=== PATIENT | male | born 1980 | race Caucasian/White ===

== ENCOUNTER 2021-06-28 14:00 | Inpatient (IN) | payer MEDICAID ==
[~2021-06-28] VITALS: Ht 172.7 cm; Wt 99.8 kg
[2021-06-28 14:00] VITALS: BP_SYST 164
--- NOTE | 2021-06-28 14:00 | NUR ---
Patient triaged and placed in waiting room. VSS and patient appears in no acute distress at this time. Accompanied by FAMILY, awaiting available bed, and MD notified of need for MSE.
--- NOTE | 2021-06-28 14:25 | NUR ---
ADAM BACK TO BED #[address] GARCIA AT BEDSIDE FOR EVALUATION
--- NOTE | 2021-06-28 14:56 | NUR ---
EKG done at bedside, results given to Dr. Curran for review.
[2021-06-28] MEDS ORDERED: ASPIRIN 81 MG TAB.CHEW PO ONE (15:00)
[2021-06-28] MEDS ORDERED: OLANZapine 10 MG TABLET PO ONE ×2 (15:00→23:30)
--- NOTE | 2021-06-28 15:01 | NUR ---
X-ray being done at bedside.
[2021-06-28 15:12] LABS: BASOPHILS # (AUTO) 0.1 K/uL (0.0-0.2); BASOPHILS % (AUTO) 0.8 % (0.0-2.0); HEMATOCRIT 38.8 % (36-54); HEMOGLOBIN 13.3 g/dL (14.0-18.0); LYMPHOCYTES # (AUTO) 1.1 K/uL (1.0-5.5); LYMPHOCYTES % (AUTO) 8.5 % (20.5-51.5); MEAN CORPUSCULAR HEMOGLOBIN 31 pg (27-31); MEAN CORPUSCULAR HGB CONC 34 % (32-36); MEAN CORPUSCULAR VOLUME 92 fL (79.0-98.0); MONOCYTES # (AUTO) 0.5 K/uL (0.0-1.0); NEUTROPHILS # (AUTO) 10.8 K/uL (1.8-7.7); NEUTROPHILS % (AUTO) 86.7 % (40.0-70.0); PLATELET COUNT (AUTO) 207 K/uL (130-430); RED BLOOD CELL COUNT(AUTO) 4.24 MIL/uL (4.2-6.2); RED CELL DISTRIBUTION WIDTH 14.3 % (9.0-15.0); WHITE BLOOD COUNT (AUTO) 12.5 K/uL (4.8-10.8)
--- NOTE | 2021-06-28 16:00 | NUR ---
URINE SPECIMEN COLLECTED sent to lab
[2021-06-28 16:01] LABS: ANION GAP 9 (5-15); CALCIUM 8.4 mg/dL (8.4-11.0); CHLORIDE 100 mmol/L (98-107); GLUCOSE 106 mg/dL (70-99); POTASSIUM 4.3 mmol/L (3.5-5.1); SODIUM SERUM 133 mmol/L (136-145)
[2021-06-28 16:02] LABS: ALANINE AMINOTRANSFERASE 19 U/L (12-78); ALBUMIN 4.2 g/dL (3.4-4.8); ASPARTATE AMINOTRANSFERASE 19 U/L (10-37); CREATININE 1.76 mg/dL (0.55-1.30); GFR AFRICAN AMERICAN 55 mL/min (>90); TOTAL BILIRUBIN 0.3 mg/dL (0.0-1.0); UREA NITROGEN, BLOOD 20 mg/dL (8-21)
[2021-06-28 16:03] LABS: ACETAMINOPHEN < 1 ug/mL (1-30); ALCOHOL, BLOOD < 3 mg/dL (<10)
[2021-06-28] MEDS ORDERED: NACL 0.9% 1,000 ML IV ONE (16:30)
[2021-06-28 16:49] LABS: BILIRUBIN,URINE NEGATIVE (NEGATIVE); BLOOD, URINE 1+ (NEGATIVE); CLARITY/URINE CLEAR (CLEAR); COLOR,URINE YELLOW (YELLOW); GLUCOSE,URINE NEGATIVE (NEGATIVE); KETONES,URINE NEGATIVE (NEGATIVE); LEUKOCYTE ESTERASE ,URINE NEGATIVE (NEGATIVE); NITRITE, URINE NEGATIVE (NEGATIVE); PH,URINE 5.5 (5.0-8.0); PROTEIN URINE 2+ (NEGATIVE); UROBILINOGEN,URINE 0.2 (0.2-1.0)
[2021-06-28 17:11] LABS: CANNABINOID, URINE POSITIVE (NEG <=50); URINE AMPHETAMINE POSITIVE (NEG <=500)
[2021-06-28 17:12] LABS: BARBITURATE, URINE NEGATIVE (NEG <=200); BENZODIAZEPINE, URINE NEGATIVE (NEG <=150); COCAINE, URINE NEGATIVE (NEG <=150); METHAMPHETAMINES SCREEN,URINE POSITIVE (NEG <=500); OPIATE, URINE NEGATIVE (NEG <=100); PHENCYCLIDINE SCREEN,URINE NEGATIVE (NEG <=25); UR TRICYCLIC ANTIDEPRESSANTS NEGATIVE (NEG <=300); URINE METHADONE NEGATIVE (NEG <=200); URINE OXYCODONE SCREEN NEGATIVE (NEG <=100); URINE PROPOXYPHENE SCREEN NEGATIVE (NEG <=300)
[2021-06-28] MEDS ORDERED: LORazepam 2 MG/ML VIAL IVP ONE (18:15)
--- NOTE | 2021-06-28 18:15 | NUR ---
Admit bed requested Patient will be admitted to care of . Admitted to TELE unit. Diagnosis CHEST PAIN Inpatient (Yes or No) Y Observation (Yes or No) N Orientation concerns or request close to nursing station (Yes or No) Y Covid Status On vent or bipap Isolation requirements N Needs a sitter N From Home (Yes or if No enter name of facility) NO. [place] Requires Dialysis (Yes or No) N Med Rec Completed (Yes of No) Y
--- NOTE | 2021-06-28 18:15 | NUR ---
PT STATES HE TAKES NO MEDICATIONS. NONE FOR RECONCILIATION.
[2021-06-28 18:41] LABS: BACTERIA,URINE None Seen /HPF (None Seen); WBC,URINE NONE SEEN /HPF (0-3)
[2021-06-28 18:42] LABS: MUCUS,URINE 2+ /LPF (None Seen)
--- NOTE | 2021-06-28 19:54 | NUR ---
Received report from [place] Pt resting comfortably in bed AOX4 VSS Able to make make needs known No acute distress at this time Will continue to monitor
--- NOTE | 2021-06-28 21:55 | NUR ---
THIS IS AN ADMISSION NOTE FOR A 41 YEAR OLD MALE PATIENT UNDER THE CARE OF DOCTOR NOWAK FOR CHEST PAIN. TEAM ATTEMPTS TO PROVIDE MEDICAL CLEARANCE FOR A PATIENT WHO IS TO BE ADMITTED AT [facility]. BARRIERS TO ADMISSION INCLUDE HYPERTENSION AND TACHYCARDIA. NAKIA MEEKS RN
[2021-06-28 22:08] VITALS: BP_SYST 180
--- NOTE | 2021-06-28 22:09 | NUR ---
EDUCATION REGARDING REMOVAL OF INSTRUMENT CHECKER TO PATIENT AND CAREGIVER AT BEDSIDE PATIENT REMOVES HEART MONITOR SPONTANEOUSLY REFUSING TO WEAR DEVICE. PATIENT IS ADMITTED FOR THE TACHYCARDIA TREATMENT/MONITORING. NAKIA MEEKS RN
[2021-06-28] MEDS ORDERED: cloNIDine HCL 0.2 MG TABLET PO PRN (23:30)
[2021-06-28] MEDS ORDERED: NITROGLYCERIN 0.4 MG TAB.SUBL SL PRN (23:30)
[2021-06-28] MEDS ORDERED: CARVEDILOL 25 MG TABLET (COREG) PO ONE (23:30)
--- NOTE | 2021-06-29 00:24 | NUR ---
PATIENT AND CAREGIVER EDUCATION ON LEAVING HEART MONITOR IN PLACE IT WAS REMOVED AGAIN. WILL REPLACE LEADS. CAREGIVER SAYS PATIENT WAS USING RESTROOM. WILL PROVIDE PATIENT GOWN AND REATTACH CHLORINATOR OPERATOR. NAKIA MEEKS RN
[2021-06-29 00:51] VITALS: BP_SYST 157
--- NOTE | 2021-06-29 03:06 | NUR ---
PATIENT TOOK OF GOWN WITH BANKING ATTORNEY AND IS SITTING AT SIDE OF BED IN DANGLING POSITION. WILL PROVIDE RE-EDUCATION REGARDING THE REASON FOR HOSPITALIZATION AND MEDICAL EQUIPMENT ORDER FOR HEART MONITORING. NAKIA MEEKS RN
[2021-06-29 04:18] VITALS: BP_SYST 152
--- NOTE | 2021-06-29 06:10 | NUR ---
CALL TO PROVIDER, DOCTOR NOWAK, REGARDING COREG ORDER CLARIFICATION 6.25MG ON MEDICATION HISTORY VERSUS 25 MG ORDER AT THIS TIME. ORDER IS WRITTEN FOR 25 MG COREG PER MD. ALSO REQUEST TO ADD DIASTOLIC ORDER FOR PATIENT CLONIDINE PRN COVERAGE INSTEAD OF SYSTOLIC OVER 160 MM HG. PATIENT ORDER FOR CLONIDINE IS ORDERED PER MD FOR SYSTOLIC GREATER THAN 160 MMHG. NAKIA MEEKS RN
[2021-06-29 06:23] LABS: BASOPHILS # (AUTO) 0.1 K/uL (0.0-0.2); BASOPHILS % (AUTO) 0.7 % (0.0-2.0); EOSINOPHILS % (AUTO) 0.3 % (0.0-4.0); HEMATOCRIT 37.9 % (36-54); HEMOGLOBIN 12.8 g/dL (14.0-18.0); LYMPHOCYTES # (AUTO) 1.6 K/uL (1.0-5.5); LYMPHOCYTES % (AUTO) 15.1 % (20.5-51.5); MEAN CORPUSCULAR HEMOGLOBIN 31 pg (27-31); MEAN CORPUSCULAR HGB CONC 34 % (32-36); MEAN CORPUSCULAR VOLUME 92 fL (79.0-98.0); MONOCYTES # (AUTO) 0.9 K/uL (0.0-1.0); MONOCYTES % (AUTO) 8.7 % (1.7-9.3); NEUTROPHILS # (AUTO) 7.8 K/uL (1.8-7.7); NEUTROPHILS % (AUTO) 75.2 % (40.0-70.0); PLATELET COUNT (AUTO) 198 K/uL (130-430); RED BLOOD CELL COUNT(AUTO) 4.11 MIL/uL (4.2-6.2); RED CELL DISTRIBUTION WIDTH 14.3 % (9.0-15.0); WHITE BLOOD COUNT (AUTO) 10.4 K/uL (4.8-10.8)
[2021-06-29 06:47] LABS: CALCIUM 8.2 mg/dL (8.4-11.0); CREATININE 1.52 mg/dL (0.55-1.30); POTASSIUM 3.9 mmol/L (3.5-5.1)
--- NOTE | 2021-06-29 07:13 | NUR ---
HANDOFF WITH MANUEL CALVILLO. NAKIA MEEKS RN
--- NOTE | 2021-06-29 07:30 | NUR ---
OPENING NOTES: PATIENT SITTING ON BED. BREATHING EVEN AND NON LABORED TO ROOM AIR. DENIES ANY DISCOMFORT AT THIS TIME. ROLL EXAMINER AT BEDSIDE. FALL AND SAFETY MEASURES REINFORCED. CALL LIGHT WITHIN REACH.
[2021-06-29 07:49] VITALS: BP_SYST 156
[2021-06-29] MEDS ORDERED: ASPIRIN 81 MG TAB.CHEW PO SCH (09:00)
[2021-06-29] MEDS ORDERED: ENOXAPARIN SODIUM 30 MG/0.3 ML SYRINGE SUBCUT SCH (09:00)
[2021-06-29] MEDS ORDERED: OLANZapine 10 MG TABLET PO SCH (09:00)
[2021-06-29] MEDS ORDERED: CARVEDILOL 25 MG TABLET (COREG) PO SCH (09:00)
[2021-06-29] MEDS ORDERED: cloNIDine HCL 0.2 MG TABLET PO ONE (10:45)
--- NOTE | 2021-06-29 10:50 | NUR ---
RN NOTES/SPOKE TO DR. NOWAK: DR. NOWAK CALLED. PER DR. NOWAK, MAY GIVE CLONIDINE 0.2 MG TABLET PO ONCE.
[2021-06-29 11:22] VITALS: BP_SYST 158
--- NOTE | 2021-06-29 12:15 | NUR ---
Client [employer] Specialist LUIGI Sharp responded to a request for social service support and to clarify patient's residence and plan for [facility]. LUIGI Sharp met with patient's caregiver Teresa Kaynez outside of room. Teresa is a pipeline gang supervisor for [employer]. She shared the patient has a 24 hour caregiver via [employer]. He is currently residing in an [facility] while the program addresses his needs for housing and other pertinent services. 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 He is currently not under conservatorship, and is able to make decisions for himself LUIGI Sharp met with patient at bedside. Patient was awake, alert and oriented x4. OFFICE SUPPORT ASSISTANT completed introductions, reason for social service consult, and provided business card. Patient was open to contact. *Patient provided permission to speak with caregiver in the room* Current concern- Patient's caregiver Teresa shares yesterday, 06/28/2021, the patient was expressing being depressed, hopeless, frustrated, and possible SI. Teresa shared they had transported him to [facility], but due to high blood pressure the patient was sent for medical clearance. Mental Health- Patient shares a previous diagnosis of Schizophrenia and Depression. While in skilled nursing he met with a psychiatrist who has prescribed him meds. Patient nor caregiver were able to provide name, but shared he receives a 1x month injection for the Schizophrenia and one other pill. Patient denies any SI at this time Substance use- OFFICE SUPPORT ASSISTANT attempted to discuss patient's +amphetamine, +methamphetamine, and +cannabinoids toxicology, but patient denied use. He stated "they got it wrong, that's not my pee". Caregiver shares patient has a history of substance abuse. Social- Patient was released from [facility] about 2 months ago, after serving 6 months. He is supported by his mother and siblings who reside in [place]. He also received services via [facility], and [employer]. OFFICE SUPPORT ASSISTANT inquired into his plan to address his mental health. Patient shared he did not want to return to [facility]. Caregiver encouraged patient to return voluntarily due to his expressions the previous day, and patient agreed. Plan- OFFICE SUPPORT ASSISTANT will contact [facility] to inquire into bed availability and process for voluntary admission. Due to patient's mental health history and caregiver's expressing concern, OFFICE SUPPORT ASSISTANT met with supervisor warping department and Patient's RN and recommended psych consult for additional assessment. OFFICE SUPPORT ASSISTANT will continue to be available as needed. Addendum: 06/29/21 at 1423 by Lila MEYERS LUIGI Sharp contacted [facility] to inquire into bed availability. According to facility, if the patient is not currently expressing suicidal ideation they will not accept him voluntarily. She also shared they would refer him to an outside mental health provider for outpatient follow up. LUIGI met with patient and Caregiver Teresa to provide them updated information. LUIGI also informed them of LUIGI's recommendation for psych consult. OFFICE SUPPORT ASSISTANT will continue to be available as needed.
--- NOTE | 2021-06-29 13:42 | NUR ---
CONSULTATION PAGED/CALLED Reason for Consultation: [] EVALUATE PSYCHIATRIC STATUS Person Who was Notified: [] DR HURTADO Consulting Physician: [] DR HURTADO Nutrition Associate Specialty: [] PSYCH Ordering Physician: [] DR NOWAK
--- NOTE | 2021-06-29 14:15 | NUR ---
Spoke to Dr. Nowak: SPOKE TO DR. NOWAK DURING ROUNDS. PER DR. NOWAK, THU TO DISCHARGE PATIENT ONCE CLEARED BY DR. HURTADO AND THU TO WI TELE.
[2021-06-29 16:41] VITALS: BP_SYST 148
[2021-06-29] MEDS ORDERED: COR25 PO (18:08)
[2021-06-29] MEDS ORDERED: CLON-433 PO (18:12)
[2021-06-29] MEDS ORDERED: OLANZapine 10 MG TABLET PO ONE (18:30)
[2021-06-29] MEDS ORDERED: DIPHENHYDRAMINE HCL 12.5 MG/5 ML UDC PO ONE (18:30)
[2021-06-29] MEDS ORDERED: DIPHENHYDRAMINE HCL 25 MG CAPSULE PO ONE (18:30)
--- NOTE | 2021-06-29 18:42 | NUR ---
DR. HURTADO AT BEDSIDE: DR. HURTADO AT BEDSIDE AND SPOKE W/ THE PATIENT. PER DR. HURTADO, OKAY TO DISCHARGE PATIENT. MAY GIVE ZYPREXA 10 MG PO ONCE AND BENADRYL 25 MG PO ONCE BEFORE DISCHARGE.
[2021-06-29] MEDS ORDERED: CLO (18:51)
[2021-06-29] MEDS ORDERED: CLONI (18:52)
[2021-06-29] MEDS ORDERED: CLONIDINE PO (18:53)
[2021-06-29 18:55] VITALS: BP_SYST 145
--- NOTE | 2021-06-29 19:26 | NUR ---
D/C Patient Patient caregiver given medication reconciliation form and D/C instructions. Exit Care provided. Patient verbalized understanding. MD discussed with patient the results and treatment provided. Ambulatory with steady gait for discharge to home. Patient in stable condition, ID band removed. Rx of given. All belongings sent with patient. Addendum: 06/29/21 at 1938 by Vickie Root RN DENIES ANY SUICIDAL IDEATION. PATIENT IS AOX 4, CALM AND COOPERATIVE.
== END 2021-06-29 19:30 | disposition home or self-care (01) | DRG 470 ==
LOC: SED 14:00 → STU 18:10 → SMU 06-29 14:25
PROVIDERS: ADMIT Family Medicine; ATTEND Family Medicine
DX: I12.9 Hypertensive chronic kidney disease with stage 1 through stage 4 chronic kidney disease, or unspecified chronic kidney disease (principal); R65.11 Systemic inflammatory response syndrome (SIRS) of non-infectious origin with acute organ dysfunction; R07.89 Other chest pain; F29 Unspecified psychosis not due to a substance or known physiological condition; F12.10 Cannabis abuse, uncomplicated; F15.10 Other stimulant abuse, uncomplicated; F17.200 Nicotine dependence, unspecified, uncomplicated; Z20.822 Contact with and (suspected) exposure to COVID-19; N18.31 Chronic kidney disease, stage 3a
CPT/HCPCS: 36415; 71045; 80048; 80053; 80307; 81000; 81003; 82550; 84484; 85025; 93005; 96374; 99285; G0378; G0480; G0481; G0482; J1650; J2060; Q0163